=== PATIENT | female | born 1995 | race Two or more races ===

== ENCOUNTER 2025-03-06 08:10 | Emergency (ER) | payer MEDICAID, SELFPAY ==
[2025-03-06 08:19] VITALS: BP 144/85; PULSE 86; RESP 18; TEMP 36.8; O2SAT 96; BMI 33.8
[2025-03-06 09:22] LABS: Basophils # (Auto) 0.1 Thou/mm3 (0.0-0.2); Basophils % (Auto) 1 % (0-2.5); Eosinophils # (Auto) 0.1 Thou/mm3 (0.0-0.5); Eosinophils % (Auto) 1 % (0-10); Hemoglobin 13.2 g/dL (12.0-16.0); Immature Granulocytes % (Auto) 1 % (0-0); Immature Granulocytes Auto 0.05 Thou/mm3 (0.00-0.00); Lymphocytes # (Auto) 1.9 Thou/mm3 (1.0-4.8); Lymphocytes % (Auto) 20 % (10-50); Mean Corpuscular HGB Conc 34.7 g/dl (31.0-37.0); Mean Corpuscular Hemoglobin 30.6 pg (25.0-35.0); Mean Corpuscular Volume 88 fL (80-100); Monocytes # (Auto) 0.5 Thou/mm3 (0.0-0.8); Monocytes % (Auto) 5 % (0-12); Neutrophils # (Auto) 7.1 Thou/mm3 (1.8-7.7); Neutrophils % (Auto) 73 % (37-80); Nucleated Red Blood Cell % 0 /100 WBC (0); Platelet Count 376 Thou/mm3 (140-440); RDW Standard Deviation 38.5 fL (36.4-46.3); Red Blood Count 4.32 Miln/mm3 (4.00-5.20); White Blood Count 9.7 Thou/mm3 (3.6-11.0)
--- NOTE | 2025-03-06 09:33 | EDNOTE_ITS ---
ED General RME/HPI General Chief complaint: General Adult/Misc Complain Stated complaint: Shakey hands for 1 week Time Seen by Provider: 03/06/25 08:14 Arrival date/time: 03/06/25 08:10 30-year-old female presents emergency room today with complaints of shaky hands ongoing x 1 week intermittently. Patient reports no headache or dizziness no weakness no chest pain or shortness of breath Limitations: no limitations Related Data Allergies Allergy/AdvReac Type Severity Reaction Status Date / Time amoxicillin Allergy Mild Rash Verified 03/06/25 08:13 Review of Systems Review of Systems Systems Reviewed: All systems reviewed, normal except as documented Constitutional Constitutional: Reports system reviewed and no additional complaints, except as documented, Denies fever(s), Denies headache(s) and Denies weakness Eyes Eyes: Reports system reviewed and no additional complaints, except as documented and Denies blurry vision ENT Ears, Nose, Mouth, and Throat: Reports system reviewed and no additional complaints, except as documented, Denies abnormal hearing, Denies disequilibrium, Denies dizziness, Denies headache(s), Denies nasal congestion, Denies nasal discharge and Denies vertigo Cardiovascular Cardiovascular: Reports system reviewed and no additional complaints, except as documented, Denies chest pain and Denies dyspnea Respiratory Respiratory: Reports system reviewed and no additional complaints, except as documented, Denies chest congestion, Denies cough and Denies dyspnea Gastrointestinal Gastrointestinal: Reports system reviewed and no additional complaints, except as documented and Denies abdominal pain Musculoskeletal Musculoskeletal: Reports system reviewed and no additional complaints, except as documented, Denies abnormal gait and Denies tingling Integumentary/Breasts Skin/Breast: Reports system reviewed and no additional complaints, except as documented and Denies rash Neurologic Neurologic: Reports system reviewed and no additional complaints, except as documented, Reports as per HPI, Denies abnormal gait, Denies abnormal hearing, Denies disequilibrium, Denies dizziness, Denies headache(s), Denies seizure-like activity, Denies tingling, Denies tremor(s), Denies vertigo and Denies weakness Past Medical History Past Medical History NEUROLOGIC: Positive Seizures (Febrile Seizures) CARDIAC: Negative Congestive Heart Failure RESPIRATORY: Negative Chronic Obstructive Pulmonary Disease (COPD) GENITOURINARY: Negative Renal Disease ENDOCRINE: Negative Diabetes Mellitus Type 1 or Diabetes Mellitus Type 2 Surgical History SURGICAL: Positive Section Social History SMOKING STATUS: Never smoker ED Exam General Limitations: Present no limitations General appearance: Present alert and in no apparent distress Head Head exam: Present atraumatic Eye Eye exam: Present normal appearance, PERRL and EOMI ENT ENT exam: Present normal exam, normal oropharynx and mucous membranes moist Neck Neck exam: Present normal inspection, full ROM and trachea midline Chest Chest inspection: Present normal inspection and symmetric chest wall rise Respiratory Respiratory exam: Present normal lung sounds bilaterally Cardiovascular Cardiovascular exam: Present regular rate, normal rhythm and normal heart sounds Abdominal Exam Abdominal exam: Present soft and normal bowel sounds Extremities Exam Extremities exam: Present normal inspection and full ROM Back Exam Back exam: Present normal inspection and full ROM Neurological Exam Neurological exam: Present alert, oriented X3 and CN II-XII intact Psychiatric Psychiatric exam: Present normal affect and normal mood Skin Skin exam: Present warm, dry, intact and normal color Course Quality Measures none Orders Category Date Time Status CBC Stat Lab 03/06/25 08:52 Completed CMP [Comprehensive Metabolic Panel] Stat Lab 03/06/25 08:52 Completed Free T4 (Free Thyroxine) Stat Lab 03/06/25 08:52 Completed HCG,Qualitative Serum Stat Lab 03/06/25 08:52 Completed Mag [Magnesium] Stat Lab 03/06/25 08:52 Completed TSH [Thyroid Stimulating Hormone] Stat Lab 03/06/25 08:52 Completed Vital Signs Vital signs: Vital Signs Temperature 98.2 F 03/06/25 08:19 Pulse Rate 86 03/06/25 08:19 Respiratory Rate 18 03/06/25 08:19 Blood Pressure 144/85 H 03/06/25 08:19 Pulse Oximetry (%) 96 03/06/25 08:19 Oxygen Delivery Method Room Air 03/06/25 08:19 O2 saturation 96% on room air within normal limits Discharge Plan Plan Patient Disposition: HOME (Self Care) Disposition Comment: Stable Prescriptions/Referrals Referrals: No Primary/Family,Physician [Primary Care Provider] - 03/09/25 Problem List Clinical Impression: Shakiness Patient/Caregiver Discharge Instructions Additional Instructions: Please follow up with your primary care doctor in the next 24-48hrs for any worsening symptoms return here immediately Print Language: Zambian Stand Alone Forms: Yessi Award Info., Work/School Release, Patient Portal Info Letter PA/MONIKA Supervising Physician PA/MONIKA Supervising Physician: Dr ramirez
[2025-03-06 09:47] LABS: Alanine Aminotransferase 13 U/L (10-49); Albumin, Serum 4.4 gm/dL (3.5-5.0); Albumin/Globulin Ratio 1.4 (1.2-2.2); Alkaline Phosphatase 81 U/L (46-116); Anion Gap 7 (7-16); Aspartate Amino Transferase 15 U/L (0-34); BUN/Creatinine Ratio 11 Ratio (12-20); Bilirubin,Total 0.5 mg/dL (0.3-1.2); Blood Urea Nitrogen 8 mg/dL (9-23); Calcium 9.3 mg/dL (8.3-10.6); Calcium (Corrected) 9.3 mg/dL (8.5-10.1); Chloride 104 mMol/L (98-107); Creatinine (Component) 0.7 mg/dL (0.6-1.3); Estimated Creatinine Clearance 115.9 mL/min (>60); Free T4 (Free Thyroxine) 1.42 ng/dL (0.89-1.76); Globulin 3.2 gm/dL (2.3-3.5); Glucose 91 mg/dL (74-106); Magnesium 1.9 mg/dL (1.6-2.6); Osmolality,Calculated 279 (275-295); Potassium 3.8 mMol/L (3.4-5.1); Sodium 141 mMol/L (136-145); Thyroid Stimulating Hormone 0.93 uIU/mL (0.55-4.78); Total Protein 7.6 gm/dL (5.7-8.2); eGFR > 60 See Note
[2025-03-06 09:50] LABS: HCG,Qualitative Serum Negative
== END 2025-03-06 10:59 | disposition home or self-care (01) ==
PROVIDERS: Nurse Practitioner Primary Care; Emergency Provider Emergency Medicine
DX: R25.1 Tremor, unspecified (principal)
CPT/HCPCS: 36415; 80053; 83735; 84439; 84443; 84703; 85025; 99283

== ENCOUNTER 2025-03-30 09:09 | Emergency (ER) | payer MEDICAID, SELFPAY ==
[2025-03-30 09:24] VITALS: PULSE 76; RESP 20; O2SAT 96
[2025-03-30 09:32] VITALS: BP 130/83; PULSE 72; RESP 18; TEMP 36.6; O2SAT 100
--- NOTE | 2025-03-30 09:36 | XR_ITS ---
Examination: CT brain head without contrast. 2-D sagittal coronal reconstructions Date and time of exam:March 30, 2025 1006 hours INDICATIONS: Generalized head pain with facial numbness onset today CTDI: vol (mGy):51.7 DLP: (mGycm):955 Technique: Multiple CT axial sections of the brain have been obtained, 5 mm slice thickness. Contrast has not been administered. 2-D sagittal, coronal reconstructions have been obtained Low dose protocols were performed. One or more of the following dose reduction techniques were used; automated exposure control, adjustment of the mA and/or KV according to patient size, use of iterative reconstruction technique. Findings: No significant ventricular enlargement. Intra-axial or extra-axial hemorrhage density is not seen. No mass effect or midline shift Basal cisterns are not remarkable. Fourth ventricle is midline. Cranial vault intact. Impression: Negative for acute hemorrhage, mass effect or midline shift As clinically warranted, brain MRI follow-up would best assess for demyelinating disease, acute ischemic change
--- NOTE | 2025-03-30 09:37 | EKG_ITS ---
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
--- NOTE | 2025-03-30 09:37 | XR_ITS ---
Examination: PA lateral chest 2 views TECHNIQUE: Upright PA lateral chest 2 views Exam date and time: March 30, 2025 1207 hours INDICATIONS: Chest pain shortness of breath today. FINDINGS: Normal heart size No lobar pneumonia. The osseous structures are intact IMPRESSION: No active disease
--- NOTE | 2025-03-30 09:37 | PD.EDRME ---
Rapid Medical Screening Exam RME Arrival date/time: 03/30/25 09:09 30-year-old female presents to the emergency department today for complaints of generalized numbness and weakness patient reports that she was seen in [facility] yesterday and treated for anxiety Time Seen by Provider: 03/30/25 09:31 Vital signs: Vital Signs Temperature 97.9 F 03/30/25 09:32 Pulse Rate 72 03/30/25 09:32 Respiratory Rate 18 03/30/25 09:32 Blood Pressure 130/83 03/30/25 09:32 Pulse Oximetry (%) 100 03/30/25 09:32 Oxygen Delivery Method Room Air 03/30/25 09:32
[2025-03-30 10:47] LABS: HCG Qualitative,Urine Negative
[2025-03-30 10:56] LABS: Amphetamine/Methamp Scrn,U Negative (Negative); Barbiturate Screen,Urine Negative (Negative); Benzodiazepines Screen,Urine Negative (Negative); Benzoylecgonine Screen, Ur Negative (Negative); Fentanyl Screen,Urine Negative (Negative); Opiate Screen,Urine Negative (Negative); THC Screen,Urine Negative (Negative)
[2025-03-30 11:07] LABS: Basophils # (Auto) 0.1 Thou/mm3 (0.0-0.2); Basophils % (Auto) 0 % (0-2.5); Eosinophils % (Auto) 0 % (0-10); Hematocrit 36.5 % (36.0-46.0); Hemoglobin 13.2 g/dL (12.0-16.0); Immature Granulocytes % (Auto) 0 % (0-0); Immature Granulocytes Auto 0.04 Thou/mm3 (0.00-0.00); Lymphocytes # (Auto) 1.2 Thou/mm3 (1.0-4.8); Lymphocytes % (Auto) 10 % (10-50); Mean Corpuscular HGB Conc 36.2 g/dl (31.0-37.0); Mean Corpuscular Volume 86 fL (80-100); Monocytes # (Auto) 0.5 Thou/mm3 (0.0-0.8); Monocytes % (Auto) 4 % (0-12); Neutrophils # (Auto) 10.3 Thou/mm3 (1.8-7.7); Neutrophils % (Auto) 86 % (37-80); Nucleated Red Blood Cell % 0 /100 WBC (0); Platelet Count 370 Thou/mm3 (140-440); RDW Standard Deviation 36.9 fL (36.4-46.3); Red Blood Count 4.26 Miln/mm3 (4.00-5.20)
[2025-03-30 11:15] LABS: Alanine Aminotransferase 20 U/L (10-49); Albumin, Serum 4.6 gm/dL (3.5-5.0); Albumin/Globulin Ratio 1.4 (1.2-2.2); Alkaline Phosphatase 76 U/L (46-116); Anion Gap 10 (7-16); Aspartate Amino Transferase 22 U/L (0-34); BUN/Creatinine Ratio 10 Ratio (12-20); Bilirubin,Total 0.6 mg/dL (0.3-1.2); Blood Urea Nitrogen 8 mg/dL (9-23); Carbon Dioxide 26.5 mMol/L (20.0-31.0); Chloride 103 mMol/L (98-107); Creatinine (Component) 0.8 mg/dL (0.6-1.3); Globulin 3.2 gm/dL (2.3-3.5); Glucose 102 mg/dL (74-106); Osmolality,Calculated 275 (275-295); Potassium 3.5 mMol/L (3.4-5.1); Sodium 139 mMol/L (136-145); Total Protein 7.8 gm/dL (5.7-8.2); Troponin I < 0.002 ng/mL (0.0-0.045); eGFR > 60 See Note
[2025-03-30 14:41] VITALS: BP 138/61; PULSE 77; RESP 18; TEMP 36.6; O2SAT 97
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
== END 2025-03-30 15:15 | disposition home or self-care (01) ==
PROVIDERS: Nurse Practitioner Primary Care; Emergency Provider Emergency Medicine; PCP Family Medicine
DX: F41.9 Anxiety disorder, unspecified (principal); I45.10 Unspecified right bundle-branch block; R07.9 Chest pain, unspecified; R06.02 Shortness of breath; R51.9 Headache, unspecified; R20.0 Anesthesia of skin
CPT/HCPCS: 36415; 70450; 71046; 80053; 80307; 81025; 84484; 85025; 93005; 99284

== ENCOUNTER 2025-04-02 03:29 | Emergency (ER) | payer MEDICAID, SELFPAY ==
[2025-04-02 03:31] VITALS: BMI 36.6
--- NOTE | 2025-04-02 03:42 | EKG_ITS ---
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
[2025-04-02 03:55] VITALS: BP 121/83; PULSE 77; RESP 17; TEMP 36.6; O2SAT 98
--- NOTE | 2025-04-02 04:30 | EDNOTE_ITS ---
ED Anxiety RME/HPI General Chief Complaint: Arrhythmia/Palpitations Stated Complaint: FEEL LIKE GOING TO PASS OUT, HEART PUMPING SLOW Time Seen by Provider: 04/02/25 04:23 Arrival date/time: 04/02/25 03:29 30F with history of recently diagnosed anxiety presents to ED with lightheadedness and heart palps. Patient was here 2 days ago with unremarkable cardiac work-up and CT head. Patient was seen in clinic and started on 10 mg Lexapro and Atarax PRN. Patient still has some anxiety. Patient states she got benzo at [facility], which helped. Limitations: no limitations Related Data Allergies Allergy/AdvReac Type Severity Reaction Status Date / Time amoxicillin Allergy Mild Rash Verified 04/02/25 03:30 Review of Systems Review of Systems Systems Reviewed: All systems reviewed, normal except as documented Constitutional Constitutional: Reports system reviewed and no additional complaints, except as documented, Denies fever(s) and Denies headache(s) ENT Ears, Nose, Mouth, and Throat: Denies disequilibrium and Denies headache(s) Cardiovascular Cardiovascular: Denies chest pain, Denies dyspnea, Reports lightheadedness and Reports palpitations Respiratory Respiratory: Reports system reviewed and no additional complaints, except as documented, Denies cough and Denies dyspnea Gastrointestinal Gastrointestinal: Reports system reviewed and no additional complaints, except as documented, Denies abdominal pain, Denies nausea and Denies vomiting Neurologic Neurologic: Reports system reviewed and no additional complaints, except as documented, Denies confusion, Denies disequilibrium and Denies headache(s) Psychiatric Psychiatric: Denies confusion Endocrine Endocrine: Reports palpitations Past Medical History Past Medical History NEUROLOGIC: Positive Seizures CARDIAC: Negative Congestive Heart Failure RESPIRATORY: Negative Chronic Obstructive Pulmonary Disease (COPD) GENITOURINARY: Negative Renal Disease ENDOCRINE: Negative Diabetes Mellitus Type 1 or Diabetes Mellitus Type 2 Surgical History SURGICAL: Positive Section Social History SMOKING STATUS: Never smoker ED Exam General Limitations: Present no limitations General appearance: Present alert, in no apparent distress and anxious Head Head exam: Present atraumatic Eye Eye exam: Present normal appearance, PERRL and EOMI ENT ENT exam: Present normal exam, normal oropharynx and mucous membranes moist Neck Neck exam: Present normal inspection, full ROM and trachea midline Chest Chest inspection: Present normal inspection and symmetric chest wall rise Respiratory Respiratory exam: Present normal lung sounds bilaterally Cardiovascular Cardiovascular exam: Present regular rate, normal rhythm and normal heart sounds Abdominal Exam Abdominal exam: Present soft and normal bowel sounds Extremities Exam Extremities exam: Present normal inspection and full ROM Back Exam Back exam: Present normal inspection and full ROM Neurological Exam Neurological exam: Present alert, oriented X3 and CN II-XII intact Psychiatric Psychiatric exam: Present normal affect and normal mood Skin Skin exam: Present warm, dry, intact and normal color Course Quality Measures none Orders Category Date Time Status EKG (ED ONLY) *Do not use* NOW Care 04/02/25 03:42 Completed EKG (ED Only) Stat Exams 04/02/25 03:42 Ordered Diazepam [Valium] Med 04/02/25 04:23 Discontinued 5 mg PO X1 ONE Vital Signs Vital signs: Vital Signs Temperature 97.9 F 04/02/25 03:55 Pulse Rate 77 04/02/25 03:55 Respiratory Rate 17 04/02/25 03:55 Blood Pressure 121/83 04/02/25 03:55 Pulse Oximetry (%) 98 04/02/25 03:55 Oxygen Delivery Method Room Air 04/02/25 03:55 Anxiety MDM Narrative MDM Narrative: 30F with history of recently diagnosed anxiety presents to ED with lightheadedness and heart palps. Patient was here 2 days ago with unremarkable cardiac work-up and CT head. Patient was seen in clinic and started on 10 mg Lexapro and Atarax PRN. Patient still has some anxiety. Patient states she got benzo at [facility], which helped. Physical exam reveals normal WOB. Patient is afebrile, alert, but anxious. EKG is NSR, like previous 2 EKGs. 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 Patient data External records reviewed:: [facility] previous records Clinical information provided by:: patient Social determinants that could affect healthcare access:: mental health Patient has the following chronic illnesses:: anxiety How is presenting disease/condition affected by chronic disease/condition?: caused by Evaluation data The following diagnostics were reviewed and interpreted by me:: EKG tracing(s) Lab and/or radiology exams considered but not ordered:: ordered Interpretation Summary: above Medications / Prescriptions Medications or Prescriptions considered but not ordered:: ordered Medication administrations:: Medication Administration History Discontinued Medications Diazepam (Diazepam 5 Mg Tablet) 5 mg PO X1 ONE Stop: 04/02/25 04:24 Consultations Consultation(s) initiated? (list below): No Diagnosis Differential diagnosis anxiety: hyperventilation, panic disorder and acute anxiety Most likely diagnosis given after review of the tests above:: anxiety Admission Indicated Admission indicated?: not indicated Admission Request Was there a request for admission?: No Disposition Plan Disposition Plan: Discharge Discharge Attestation Discharge Attestation: The patient and all family members were given an opportunity to ask questions and understood the discharge instructions. Discharge instructions specifically effects, indications for sooner follow up or return to the emergency department, and the expected course of current diagnosis. Patient condition: Stable Discharge Plan Plan Patient Disposition: HOME (Self Care) Discharge Disposition comment: Stable Problem List Clinical Impression: Anxiety Patient/Caregiver Discharge Instructions Education Materials: Your Body's Response to Anxiety Additional Instructions: Please follow-up with PCP within 24-48 hours and return immediately if symptoms worsen. Print Language: Latvian Stand Alone Forms: Patient Portal Info Letter ISACC/MONIKA Supervising Physician ASHLI Supervising Physician: Dr. Crow
[2025-04-02] MEDS: DIAZEPAM 5 MG TABLET PO (04:39)
== END 2025-04-02 04:42 | disposition home or self-care (01) ==
LOC: SERX 04:35
PROVIDERS: Emergency Provider Emergency Medicine; PCP Family Medicine
DX: F41.9 Anxiety disorder, unspecified (principal); I45.10 Unspecified right bundle-branch block
CPT/HCPCS: 93005; 99283; A9270

== ENCOUNTER 2025-06-03 00:23 | Emergency (ER) | payer MEDICAID, SELFPAY ==
[2025-06-03 00:25] VITALS: BMI 32.9
--- NOTE | 2025-06-03 00:32 | XR_ITS ---
Examination: PA chest single view TECHNIQUE: Upright PA chest single view Date and time: June 03, 2025 0041 hours INDICATIONS: Coughing fever today FINDINGS: Normal heart size No lobar pneumonia. No pulmonary edema The osseous structures are intact IMPRESSION: No lobar pneumonia
--- NOTE | 2025-06-03 00:34 | PD.EDURI ---
Upper Respiratory Inf. RME/HPI General Chief Complaint: Flu Like Symptoms Stated Complaint: SOB COUGH Time Seen by Provider: 06/03/25 00:33 Arrival date/time: 06/03/25 00:23 RME / HPI RME / HPI Narrative: This section includes all my notes and documentations, including HPI, PE, and ED course. Jc Zelaya MD HPI: 30 y/o female with Hx of Anxiety and Depression here with about a week history of worsening cough, productive cough, purulent sputum, and dyspnea. Just prior to arrival, she felt short of breath. No other complaints. ROS: All negative except as documented in HPI. Physical Exam: General: Alert and oriented. Appears anxious. Eyes: Conjunctivae and lids clear. ENT: No nasal congestion. Pharynx normal. TM normal bilaterally. Neck: Supple. Heart: RRR. Lungs: No respiratory distress. Good air movement. No rhonchi, wheezing, rales. Skin: Warm and dry. Neuro: Alert and oriented X 3. I reviewed all diagnostic test results: My interpretation of the chest x-ray is increased bronchial markings, official radiology report is pending. Covid/Influenza: Negative. At this point, diagnoses include: Lower respiratory infection and Anxiety. Treatment here included: Xanax 0.5 mg, Zithromax 500 mg. She felt much better. Recommended outpatient care. Based on my best medical judgment, made decision no further evaluation or treatment indicated at this time. Patient understands and agrees to the discharge instructions customized and printed, see below. Discharge instructions from Dr. Zelaya: --No physical exertion for 3 days to help rest the lungs. ?No smoking or exposure to smoking or pets or dust or cold or humidity. --Zithromax to kill the germs causing the bronchitis. --Xanax as needed for anxiety. Avoid more than 2 to 3 pills/week to avoid dependence. --See a private doctor next week if not completely better. --Seek immediate medical care with worsening or with any concerns. Jc Zelaya MD Related Data Previous Rx's ?Medication ?Instructions ?Recorded alprazolam 0.5 mg tablet (Xanax) 0.5 mg PO BID PRN anxiety #10 tabs 06/03/25 azithromycin 500 mg tablet 500 mg PO QDAY 3 days #3 tabs 06/03/25 (Zithromax TRI-FLOWER) Allergies Allergy/AdvReac Type Severity Reaction Status Date / Time amoxicillin Allergy Mild Rash Verified 06/03/25 00:24 Review of Systems Review of Systems Systems Reviewed: All systems reviewed, normal except as documented Past Medical History Past Medical History NEUROLOGIC: Positive Seizures PSYCHO/SOCIAL: Positive Depression and Anxiety Surgical History SURGICAL: Positive Section ED Exam Narrative Physical exam: Refer to HPI Course Course Course Narrative: CXR is ordered for determining the etiology of shortness of breath. Quality Measures none Orders Category Date Time Status Bedside COVID-19 Antigen Test NOW Care 06/03/25 00:32 Completed Bedside Influenza A&B Antigen Test NOW Care 06/03/25 00:32 Completed XR chest 1V portable Stat Exams 06/03/25 00:32 Taken ALPRazoLAM [Xanax] Med 06/03/25 00:32 Discontinued 0.5 mg PO X1 ONE Azithromycin Po [Zithromax PO] Med 06/03/25 00:58 Discontinued 500 mg PO X1 ONE Vital Signs Vital signs: Vital Signs Temperature 98.6 F 06/03/25 00:35 Pulse Rate 75 06/03/25 00:35 Respiratory Rate 14 06/03/25 00:35 Blood Pressure 146/81 H 06/03/25 00:35 Pulse Oximetry (%) 99 06/03/25 00:35 Oxygen Delivery Method Room Air 06/03/25 00:35 Upper Respiratory Infection MDM Narrative MDM Narrative:: Scribe Attestation: IJennifer, am scribing for and in the presence of Dr. Zelaya. Provider Notation: Although this document has been carefully reviewed, there may still be some phonetic and other typographical errors.? These errors are purely grammatical due to imperfections in the software program and should not be construed in any way to? compromise the substance of the patient's medical care during this visit. 30 y/o female with Hx of Anxiety and Depression here with about a week history of worsening cough, productive cough, purulent sputum, and dyspnea. Just prior to arrival, she felt short of breath. No other complaints. Patient data External records reviewed:: [facility] previous records (Reviewed records from 04/02/25. Patient was seen for Anxiety.) Clinical information provided by:: patient Social determinants that could affect healthcare access:: mental health Patient has the following chronic illnesses:: Seizure, Depression and Anxiety How is presenting disease/condition affected by chronic disease/condition?: exacerbated by Evaluation data The following diagnostics were reviewed and interpreted by me:: lab results and radiology exam(s) Lab and/or radiology exams considered but not ordered:: None Interpretation Summary: I reviewed all diagnostic test results: My interpretation of the chest x-ray is increased bronchial markings. Covid/Influenza: Negative. Medications / Prescriptions Medications or Prescriptions considered but not ordered:: None Medication administrations:: Medication Administration History Discontinued Medications Alprazolam (Alprazolam 0.25 Mg Tablet) 0.5 mg PO X1 ONE Stop: 06/03/25 00:33 Last Admin: 06/03/25 00:56 Dose: 0.5 mg Documented By: ANG Azithromycin (Azithromycin 250 Mg Tablet) 500 mg PO X1 ONE Stop: 06/03/25 00:59 Last Admin: 06/03/25 01:37 Dose: 500 mg Documented By: ANG Xanax 0.5 mg, Zithromax 500 mg Consultations Consultation(s) initiated? (list below): No Diagnosis Upper Respiratory Differential Diagnosis: upper respiratory infection, sinusitis, viral infection, bronchitis, influenza and pharyngitis Most likely diagnosis given after review of the tests above:: Lower Respiratory Infection Anxiety Admission Indicated Admission indicated?: not indicated Explain why admission is indicated or not indicated:: With improvement in no condition needing emergent intervention, there was no indication for admission. Admission Request Was there a request for admission?: No Disposition Plan Disposition Plan: Discharge Discharge Attestation Discharge Attestation: The patient and all family members were given an opportunity to ask questions and understood the discharge instructions. Discharge instructions specifically effects, indications for sooner follow up or return to the emergency department, and the expected course of current diagnosis. Patient condition: Stable Discharge Plan Plan Patient Disposition: HOME (Self Care) Prescriptions/Referrals Prescriptions/Med Rec: New alprazolam [Xanax] 0.5 mg tablet 0.5 mg PO BID PRN (Reason: anxiety) Qty: 10 0RF azithromycin [Zithromax TRI-FLOWER] 500 mg tablet 500 mg PO QDAY 3 Days Qty: 3 0RF Problem List Clinical Impression: Lower respiratory infection Patient/Caregiver Discharge Instructions Discharge Activity: activity as tolerated Education Materials: ED Anxiety Reaction, ED Bronchitis, Antibiotics (Child), ED Panic Attack Additional Instructions: Discharge instructions from Dr. Zelaya: --No physical exertion for 3 days to help rest the lungs. ?No smoking or exposure to smoking or pets or dust or cold or humidity. --Zithromax to kill the germs causing the bronchitis. --Xanax as needed for anxiety. Avoid more than 2 to 3 pills/week to avoid dependence. --See a private doctor next week if not completely better. --Seek immediate medical care with worsening or with any concerns. Print Language: [place] Stand Alone Forms: [employer] Award Info., Patient Portal Info Letter
[2025-06-03 00:35] VITALS: BP 146/81; PULSE 75; RESP 14; TEMP 37; O2SAT 99
[2025-06-03] MEDS: AZITHROMYCIN 250 MG TABLET 500 MG PO (01:37)
== END 2025-06-03 01:40 | disposition home or self-care (01) ==
LOC: SERX 01:25
PROVIDERS: Emergency Provider Emergency Medicine; PCP Physician Assistant
DX: J22 Unspecified acute lower respiratory infection (principal)
CPT/HCPCS: 71045; 87400; 87811; 99283; A9270

== ENCOUNTER 2025-08-11 20:12 | Emergency (ER) | payer MEDICAID, SELFPAY ==
[2025-08-11 20:13] VITALS: BMI 38.4
--- NOTE | 2025-08-11 20:19 | EKG_ITS ---
[facility] Test Date: 2025-08-11 Pat Name: AMPARO BETANCOURT Department: Room: - Gender: Female Thumb Sewer: : 1995 Requested By: Nigel Stuart Order Number: [id number] Reading MD: Nigel Stuart Measurements Intervals [place] Rate: 79 P: 35 ND: 152 QRS: 55 QRSD: 108 T: 27 QT: 351 QTc: 404 Interpretive Statements SINUS RHYTHM Compared to ECG 04/02/2025 04:07:17 Incomplete right bundle-branch block no longer present /store/S0/[id number]/ecg/[id number].pdf
[2025-08-11 20:31] VITALS: BP 120/81; PULSE 76; RESP 18; TEMP 37.4; O2SAT 96
--- NOTE | 2025-08-11 20:37 | EDNOTE_ITS ---
ED Chest Pain RME/HPI General Chief Complaint: Chest Pain Stated Complaint: CHEST PAIN Time Seen by Provider: 08/11/25 20:35 Arrival date/time: 08/11/25 20:12 30F with history of anxiety presents to ED with 1 day of R-sided chest pain. Patient states her anxiety attacks feels different from this. Patient denies fall/trauma. Limitations: no limitations Related Data Previous Rx's ?Medication ?Instructions ?Recorded alprazolam 0.5 mg tablet (Xanax) 0.5 mg PO BID PRN anx iety #10 tabs 06/03/25 Allergies Allergy/AdvReac Type Severity Reaction Status Date / Time amoxicillin Allergy Mild Rash Verified 06/03/25 00:24 Review of Systems Review of Systems Systems Reviewed: All systems reviewed, normal except as documented Cardiovascular Cardiovascular: Reports as per HPI and Reports chest pain Past Medical History Past Medical History NEUROLOGIC: Positive Seizures CARDIAC: Negative Congestive Heart Failure RESPIRATORY: Negative Chronic Obstructive Pulmonary Disease (COPD) GENITOURINARY: Negative Renal Disease ENDOCRINE: Negative Diabetes Mellitus Type 1 or Diabetes Mellitus Type 2 PSYCHO/SOCIAL: Positive Depression and Anxiety Surgical History SURGICAL: Positive Section Social History SMOKING STATUS: Never smoker ED Exam General Limitations: Present no limitations General appearance: Present alert and in no apparent distress Head Head exam: Present atraumatic Neck Neck exam: Present normal inspection, full ROM and trachea midline Chest Chest inspection: Present symmetric chest wall rise and tenderness (R-side) Extremities Exam Extremities exam: Present normal inspection and full ROM Neurological Exam Neurological exam: Present alert and oriented X3 Psychiatric Psychiatric exam: Present normal affect and normal mood Skin Skin exam: Present warm, dry, intact and normal color Course Quality Measures none Orders Category Date Time Status EKG (ED ONLY) *Do not use* NOW Care 08/11/25 20:19 Completed EKG (ED Only) Stat Exams 08/11/25 20:19 Draft Naproxen [Naprosyn] Med 08/11/25 20:35 Once 500 mg PO X1 ONE Vital Signs Vital signs: Vital Signs Temperature 99.3 F 08/11/25 20:31 Pulse Rate 76 08/11/25 20:31 Respiratory Rate 18 08/11/25 20:31 Blood Pressure 120/81 08/11/25 20:31 Pulse Oximetry (%) 96 08/11/25 20:31 Oxygen Delivery Method Room Air 08/11/25 20:31 O2 at 96% on RA and WNLs Chest Pain MDM Narrative MDM Narrative:: 30F with history of anxiety presents to ED with 1 day of R-sided chest pain. Patient states her anxiety attacks feels different from this. Patient denies fall/trauma. Physical exam reveals R-sided chest wall tenderness. Normal WOB. Patient is afebrile, calm, and alert. EKG is NSR. Meds and travel counselor given. Patient data External records reviewed:: [facility] previous records Clinical information provided by:: patient Social determinants that could affect healthcare access:: mental health Patient has the following chronic illnesses:: anxiety How is presenting disease/condition affected by chronic disease/condition?: exacerbated by Evaluation data The following diagnostics were reviewed and interpreted by me:: EKG tracing(s) Lab and/or radiology exams considered but not ordered:: ordered Interpretation Summary: above Medications / Prescriptions Medications or Prescriptions considered but not ordered:: ordered Medication administrations:: Medication Administration History Naproxen (Naproxen 250 Mg Tablet) 500 mg PO X1 ONE Stop: 08/11/25 20:36 above Consultations Consultation(s) initiated? (list below): No Diagnosis Chest Pain Differential Diagnosis: fracture of rib, pneumothorax, stable angina, unstable angina pectoris, atypical chest pain, st elevation myocardial infarction, costochondritis, chest pain and biliary colic Most likely diagnosis given after review of the tests above:: costochondritis Admission Indicated Admission indicated?: not indicated Admission Request Was there a request for admission?: No Disposition Plan Disposition Plan: Discharge Discharge Attestation Discharge Attestation: The patient and all family members were given an opportunity to ask questions and understood the discharge instructions. Discharge instructions specifically effects, indications for sooner follow up or return to the emergency department, and the expected course of current diagnosis. Patient condition: Stable Discharge Plan Plan Patient Disposition: HOME (Self Care) Discharge Disposition comment: Stable Prescriptions/Referrals Prescriptions/Med Rec: No Action alprazolam [Xanax] 0.5 mg tablet 0.5 mg PO BID PRN (Reason: anxiety) Qty: 10 0RF Problem List Clinical Impression: Costochondritis Patient/Caregiver Discharge Instructions Education Materials: Costochondritis Additional Instructions: Please follow-up with PCP within 24-48 hours and return immediately if symptoms worsen. NSAIDs like ibuprofen tend to work better for this type of pain. Print Language: Palestinian Stand Alone Forms: Patient Portal Info Letter PA/[employer] Supervising Physician PA/[employer] Supervising Physician: Dr. Schmidt
[2025-08-11] MEDS: NAPROXEN 250 MG TABLET 500 MG PO (21:02)
== END 2025-08-11 21:45 | disposition home or self-care (01) ==
LOC: SERX 21:11
PROVIDERS: Emergency Provider Emergency Medicine
DX: M94.0 Chondrocostal junction syndrome [Tietze] (principal)
CPT/HCPCS: 93005; 99283; A9270